=== PATIENT | male | born 1970 | race African-American/Black ===

== ENCOUNTER 2020-11-22 16:56 | Emergency (ER) | payer OTHER ==
[~2020-11-22] VITALS: Ht 185.4 cm; Wt 86.2 kg
[2020-11-22 17:12] VITALS: BP 143/83
[2020-11-22] MEDS ORDERED: COZAAR 25 MG TA25 M1 PO (17:17)
[2020-11-22] MEDS ORDERED: HYDROCHLOROTHIA25 M1 PO (17:17)
[2020-11-22] MEDS ORDERED: HYDROCODON-ACE1 EAC7 PO (17:48)
== END 2020-11-22 17:53 | disposition home or self-care (01) ==
LOC: ER 16:56
DX: S46.912A Strain of unspecified muscle, fascia and tendon at shoulder and upper arm level, left arm, initial encounter (principal); I10 Essential (primary) hypertension; Z79.899 Other long term (current) drug therapy; X50.1XXA Overexertion from prolonged static or awkward postures, initial encounter; Y93.89 Activity, other specified; Y92.89 Other specified places as the place of occurrence of the external cause; Y99.8 Other external cause status

== ENCOUNTER 2020-12-02 00:01 | Emergency (ER) | payer OTHER ==
[~2020-12-02] VITALS: Ht 185.4 cm; Wt 88.5 kg
[~2020-12-02 00:01] MED LIST: COZAAR 25 MG TA25 M1 PO; HYDROCHLOROTHIA25 M1 PO; HYDROCODON-ACE1 EAC7 PO
[2020-12-02 00:08] VITALS: BP 131/88
[2020-12-02] MEDS ORDERED: ULTRAM 50MG TAB50 MG PO (00:15)
[2020-12-02] MEDS ORDERED: IBUPROFEN 600600 M1 PO (00:15)
== END 2020-12-02 00:54 | disposition home or self-care (01) ==
LOC: ER 00:01
DX: S46.912A Strain of unspecified muscle, fascia and tendon at shoulder and upper arm level, left arm, initial encounter (principal); I10 Essential (primary) hypertension; Z79.899 Other long term (current) drug therapy; X50.1XXA Overexertion from prolonged static or awkward postures, initial encounter; Y93.89 Activity, other specified; Y92.89 Other specified places as the place of occurrence of the external cause; Y99.8 Other external cause status

== ENCOUNTER 2021-03-15 22:59 | Emergency (ER) | payer OTHER ==
[~2021-03-15] VITALS: Ht 185.4 cm; Wt 86.2 kg
[~2021-03-15 22:59] MED LIST changes: +IBUPROFEN 600600 M1 PO; +ULTRAM 50MG TAB50 MG PO
[2021-03-16 00:17] LABS: URINE BILIRUBIN NEGATIVE (Negative); URINE BLOOD TRACE (Negative); URINE CLARITY CLEAR; URINE COLOR YELLOW; URINE GLUCOSE-RANDOM* NEGATIVE (Negative); URINE KETONES NEGATIVE (Negative); URINE LEUKOCYTES-REFLEX NEGATIVE (Negative); URINE NITRITE-REFLEX NEGATIVE (Negative); URINE PROTEIN (DIPSTICK) NEGATIVE (Negative); URINE UROBILINOGEN 0.2 E.U./dl (0.2-1.0)
[2021-03-16 00:19] LABS: BASOPHILS 0.5 % (0.0-2.0); EOSINOPHILS 0.7 % (0.0-3.0); LYMPHOCYTES 16.1 % (24.0-44.0); MCH 29.8 pg (26.0-34.0); MCHC 33.3 g/dL (28.0-37.0); MCV 89.6 fL (80.0-100.0); MONOCYTES 5.8 % (1.0-8.0); PLATELET COUNT 242 thou/uL (150-400); POLYS 76.9 % (36.0-66.0); RBC 5.02 mil/uL (4.50-6.00); RDW 14.5 % (10.5-14.5); WBC 7.7 thou/uL (4.0-11.0)
[2021-03-16 00:22] LABS: CALCIUM 9.1 mg/dL (8.5-10.1); CREATININE 1.1 mg/dL (0.7-1.3); POTASSIUM 3.5 mmol/L (3.5-5.1)
[2021-03-16 00:28] LABS: ALBUMIN 4.5 g/dL (3.4-5.0); TOTAL BILIRUBIN 0.4 mg/dL (0.2-1.0); TOTAL PROTEIN 8.1 g/dL (6.4-8.2)
[2021-03-16] MEDS ORDERED: ZOFRAN ODT4 MG PO (00:41)
[2021-03-16 00:44] VITALS: BP 114/70
== END 2021-03-16 00:45 | disposition home or self-care (01) ==
LOC: ER 22:59
PROVIDERS: Emergency Medicine
DX: R11.0 Nausea (principal); R51.9 Headache, unspecified; M54.5 Low back pain; I10 Essential (primary) hypertension; Z79.899 Other long term (current) drug therapy